=== PATIENT | male | born 1955 | race Caucasian/White ===

== ENCOUNTER → 2017-09-08 15:56 | Outpatient (CLI) | payer OTHER, SELFPAY ==
--- NOTE | 2017-09-08 | DI.MRI.S_ITS ---
PROCEDURE: MR LUMBAR SPINE WO CON INDICATIONS: LOW BACK PAIN RADIATING INTO HIPS AND DOWN LEGS TO FEET TECHNIQUE: Noncontrast sagittal T1 spin echo and T2 fast echo, sagittal STIR, axial T1 and T2 fast spin echo through the lumbar spine. In cases with scoliosis, additional coronal T2 fast spin echo may be performed. COMPARISON: None. FINDINGS: Image quality: Excellent. Alignment and Curvature: There is normal bony alignment. Bone Marrow: Marrow is of normal overall signal. No acute vertebral body compression fractures. Spinal Cord: Conus medullaris terminates at the L1 level. Visualized cord demonstrates normal signal and size. Paraspinous Soft Tissues: No paravertebral masses. L1-L2: Normal appearance. L2-L3: Normal appearance. L3-L4: Normal appearance. L4-L5: Moderately severe degenerative disc height reduction and desiccation there is a posterior broad-based transverse disc bulge at this level. This is slightly greater on the right than the left and extends into the posterolateral recess and neural foramen to a mild degree, combining with bilateral symmetric facet osteoarthritis to result in mild impingement on the course of the right L4 nerve root. Impingement on the course of the left L4 nerve root is not seen. L5-S1: The degenerative disc disease at L5-S1 there is moderate in severity, and there is a moderate degree of bilateral facet osteoarthritis with facet hyperostosis and ligamentum flavum hypertrophy, symmetrically narrowing the neural foramen at this level to a mild degree. Definite nerve root impingement is not identified, however. IMPRESSION: The degenerative disc disease and facet osteoarthritis along the lumbosacral spine there is minimal to the L4-5 level and L5-S1 level where degenerative disc height reduction and desiccation is present. There is foraminal stenosis that is relatively mild noted on the right at L4-5 and symmetrically at L5-S1. Nerve root impingement at these levels if present would be relatively mild. Dictated by: Anton Fair M.D. on 09/09/2017 at 17:17 Approved by: Anton Fair M.D. on 09/09/2017 at 17:21
== END ==
PROVIDERS: Visit Provider Orthopaedic Surgery
DX: M51.36 Other intervertebral disc degeneration, lumbar region (principal); M47.816 Spondylosis without myelopathy or radiculopathy, lumbar region; M51.37 Other intervertebral disc degeneration, lumbosacral region; M99.73 Connective tissue and disc stenosis of intervertebral foramina of lumbar region
CPT/HCPCS: 72148

== ENCOUNTER → 2019-05-25 15:08 | Outpatient (ROUT) | payer OTHER, SELFPAY ==
[2019-05-25 15:59] LABS: Aspartate Aminotransferase 35 IU/L (17-59); BUN Creatinine Ratio 18.6 (6-22); Blood Urea Nitrogen 13 mg/dL (9-20); Calcium 9.8 mg/dL (8.4-10.2); Carbon Dioxide 29 mmol/L (22-32); Chloride 96 mmol/L (98-107); Cholesterol 207 mg/dL (140-199); Estimated Glomerular Filt Rate > 60.0 mL/min (>60); Glucose 160 mg/dL (80-110); HDL Cholesterol 72 mg/dL (40-60); HEMOLYSIS < 15 (0-50); LDL Cholesterol Calculated 113 mg/dL (<100); Potassium 3.8 mmol/L (3.4-5.1); Sodium 137 mmol/L (137-145); Triglycerides 110 mg/dL (35-150)
[2019-05-25 16:07] LABS: Hemoglobin A1C% w Est Avg Glu 7.5 % (4.0-6.0)
[2019-05-25 16:28] LABS: Prostate Specific Antigen Scrn 1.27 ng/mL (0.1-4.0)
== END ==
PROVIDERS: Visit Provider Internal Medicine
DX: Z00.00 Encounter for general adult medical examination without abnormal findings (principal); I10 Essential (primary) hypertension; E78.2 Mixed hyperlipidemia; E11.9 Type 2 diabetes mellitus without complications
CPT/HCPCS: 80048; 80061; 83036; 84450; G0103

== ENCOUNTER → 2020-03-07 15:28 | Outpatient (ROUT) | payer OTHER, SELFPAY ==
[2020-03-07 15:47] LABS: Alanine Aminotransferase 37 IU/L (<50); Albumin 4.3 g/dL (3.5-5.0); Albumin Globulin Ratio 1.4 (1.0-2.8); Alkaline Phosphatase 52 U/L (38-126); Aspartate Aminotransferase 33 IU/L (17-59); BUN Creatinine Ratio 26.7 (6-22); Bilirubin Total 0.6 mg/dL (0.2-1.3); Blood Urea Nitrogen 16 mg/dL (9-20); Calcium 9.7 mg/dL (8.4-10.2); Carbon Dioxide 31 mmol/L (22-32); Chloride 99 mmol/L (98-107); Cholesterol 161 mg/dL (140-199); Estimated Glomerular Filt Rate > 60.0 mL/min (>60); Glucose 153 mg/dL (80-110); HDL Cholesterol 47 mg/dL (40-60); HEMOLYSIS < 15 (0-50); LDL Cholesterol Calculated 86 mg/dL (<100); Potassium 3.9 mmol/L (3.4-5.1); Sodium 136 mmol/L (137-145); Total Protein 7.3 g/dL (6.3-8.2); Triglycerides 142 mg/dL (35-150)
== END ==
PROVIDERS: Visit Provider Internal Medicine
DX: E11.69 Type 2 diabetes mellitus with other specified complication (principal); E78.2 Mixed hyperlipidemia
CPT/HCPCS: 80053; 80061

== ENCOUNTER 2020-05-10 17:28 | Emergency (ER) | payer OTHER, SELFPAY ==
[2020-05-10 17:35] VITALS: BP 158/94; PULSE 81; RESP 18; TEMP 36.9; O2SAT 98; BMI 30.5
--- NOTE | 2020-05-10 17:43 | DI.RAD.S_ITS ---
PROCEDURE: XR HAND RT MIN 3V INDICATIONS: R hand injury TECHNIQUE: 3 views of the hand acquired. COMPARISON: None. FINDINGS: Bones: No acute fractures or dislocations. Carpal bones are normally aligned. No suspicious bony lesions. Chronic ununited ulnar styloid styloid fracture is noted. Mild degenerative changes are noted at the this triscaphe joint, the 1st carpometacarpal and metacarpophalangeal joints and scattered throughout the interphalangeal joints. Soft tissues: No suspicious soft tissue calcifications. IMPRESSION: No acute osseous abnormality. Mild osteoarthrosis. If the symptoms persist with conservative management, consider cross sectional imaging such as CT or MRI for further assessment. Dictated by: Carlton Mccauley M.D. on 05/10/2020 at 18:21 Approved by: Carlton Mccauley M.D. on 05/10/2020 at 18:22
--- NOTE | 2020-05-10 19:18 | ED.UPPEXIN ---
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 Using a Breaker bar to loosen a knot on a motor mount. Using heavy stress with his right hand and wrist. [place] pain afterwards. Ongoing through today. Patient had history of injury to right wrist and hand at 17 years of age. Usually has full active range of motion but now has limited range of motion with swelling over the dorsum of the right wrist. No skin injury. No numbness or tingling. MD complaint: injury to: right and wrist Related Data Home Medications Medication Instructions Recorded Confirmed atorvastatin [Lipitor] 80 mg OR Q DAY #0 01/07/13 lisinopril 20 mg PO Q DAY #0 01/07/13 chlorthalidone #0 04/17/17 metformin [Fortamet] #0 04/17/17 Previous Rx's Medication Instructions Recorded ibuprofen 600 mg PO Q6H PRN #12 tab 05/10/20 Allergies Allergy/AdvReac Type Severity Reaction Status Date / Time No Known Drug Allergies Allergy Verified 05/10/20 17:38 Review of Systems Review of Systems Narrative: GENERAL: Denies chills, fatigue, malaise, fever, sweats. MUSCULOSKELETAL: denies muscle or bony pain SKIN: Denies rash, skin lesions NEUROLOGIC: Denies weakness, headache, numbness, change in speech, confusion ROS Unobtainable: All systems reviewed & are unremarkable except as noted in HPI and below Patient History Social History Smoking Status: Former smoker Smoking Status: Former smoker alcohol intake frequency: 0-2 drinks per day Substance Use Type: does not use Exam Narrative Exam Narrative: GENERAL: patient appears stated age. Well-nourished, well-developed patient, in no distress, not toxic not dyspneic HEAD: Normocephalic. EXTREMITIES: No gross deformities. Examination right upper extremity. Nontender shoulder elbow. Hand were soft and pink with strong radial pulse and light touch intact to thumb and fingertips. Makes strong okay sign. As well as thumbs up. Good resistance opposition to my thumb. Limited range of motion of the wrist due to pain. There is dorsal surface wrist edema mild erythema. Tenderness or overlying the ulna styloid. As well as distal radius. 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 NEURO: AOx4. SKIN: Warm and dry PSYCH: Not anxious, is cooperative Initial Vital Signs Initial Vital Signs: Vital Signs Temperature 98.5 F 05/10/20 17:35 Pulse Rate 81 05/10/20 17:35 Respiratory Rate 18 05/10/20 17:35 Blood Pressure 158/94 H 05/10/20 17:35 Pulse Oximetry 98 05/10/20 17:35 Procedures Orthopedic Splinting/Casting Injury #1: Side: right Upper Extremity Injury Location: wrist Upper Extremity Immobilizer: wrist splint and thumb spica Post splinting neuro exam: intact and no change Post splinting vascular exam: no change Placed by: Provider (central services tech) Course Orders Ordered: Discontinued Medications Ibuprofen (Ibuprofen 400 Mg Tablet) 800 mg PO NOW ONE Stop: 05/10/20 19:19 Last Admin: 05/10/20 19:28 Dose: 800 mg Documented by: GUZMAN Reevaluation(s) Reevaluation #1: Patient tolerated splinting well. Agrees with treatment plan and follow-up. Time: 19:27 Vital Signs Vital signs: Vital Signs - 8 hr 05/10/20 17:35 Temperature 98.5 F Pulse Rate 81 Respiratory Rate 18 Blood Pressure 158/94 H Pulse Oximetry 98 MDM - Extremity Injury (Upper) Differential Diagnosis Differential diagnosis: Likely sprain and strain of wrist and fracture of wrist Imaging Data Extremity x-ray #1: Radiologist's Impression: [address] [id number] ReportSigned Patient: Daron Jolly [facility]#: [id number]: 6Acct:[id number]/Sex: 65 / MDate of Service: 05/10/20Loc: EDAccession Number: [id number] Procedure: XR hand RT min 3V Ordering Provider: Jaron Ro D.O. PROCEDURE: XR HAND RT MIN 3V INDICATIONS: R hand injury TECHNIQUE: 3 views of the hand acquired. COMPARISON: None. FINDINGS: Bones: No acute fractures or dislocations. Carpal bones are normally aligned. No suspicious bony lesions. Chronic ununited ulnar styloid styloid fracture is noted. Mild degenerative changes are noted at the this triscaphe joint, the 1st carpometacarpal and metacarpophalangeal joints and scattered throughout the interphalangeal joints. Soft tissues: No suspicious soft tissue calcifications. IMPRESSION: No acute osseous abnormality. Mild osteoarthrosis. If the symptoms persist with conservative management, consider cross sectional imaging such as CT or MRI for further assessment. Dictated by: Carlton Mccauley M.D. on 05/10/2020 at 18:21 Approved by: Carlton Mccauley M.D. on 05/10/2020 at 18:22 [facility] Narrative Medical decision making narrative: Appropriate for discharge home. Patient is self-employed. Comfortable with treatment plan and follow-up with orthopedics. Short course of anti-inflammatory appropriate. Patient not want narcotics Discharge Plan Departure Patient Disposition: Home Clinical Impression: Sprain and strain of wrist Instructions: DI for Wrist Sprain Activity Restrictions/Additional Instructions: Return to work when cleared by orthopedic/hand surgeon. Call his office in the morning for office recheck within a week. Keep hand and wrist elevated at shoulder level when at rest. May use cool packs to the wrist as needed 20 minutes at time for pain and swelling. Use wrist splint for comfort and immobilization. Return if worse if any questions or concerns. May need CT scan or MRI of the wrist if not improving 7 or 10 days Prescriptions: New ibuprofen 600 mg tablet 600 mg PO Q6H PRN (Reason: fever or pain) Qty: 12 RF: 0 No Action lisinopril 20 MG tablet 20 mg PO Q DAY Qty: 0 RF: 0 atorvastatin [Lipitor] 80 MG tablet 80 mg OR Q DAY Qty: 0 RF: 0 chlorthalidone 25 MG tablet Qty: 0 RF: 0 metformin [Fortamet] 1,000 MG tablet extended release 24hr Qty: 0 RF: 0 Referrals: Ash Pond MD [Primary Care Provider] - Phan Stevens MD [Physician] -
[2020-05-10] MEDS: IBUPROFEN 400 MG TABLET 800 MG PO (19:28)
== END 2020-05-10 19:43 | disposition home or self-care (01) ==
PROVIDERS: Emergency Provider Emergency Medicine; PCP Internal Medicine
DX: S63.501A Unspecified sprain of right wrist, initial encounter (principal); X58.XXXA Exposure to other specified factors, initial encounter
CPT/HCPCS: 73130; 99283

== ENCOUNTER → 2020-09-05 15:12 | Outpatient (ROUT) | payer OTHER, SELFPAY ==
[2020-09-05 15:56] LABS: Aspartate Aminotransferase 40 IU/L (17-59); BUN Creatinine Ratio 21.7 (6-22); Blood Urea Nitrogen 15 mg/dL (9-20); Carbon Dioxide 29 mmol/L (22-32); Chloride 97 mmol/L (98-107); Cholesterol 201 mg/dL (140-199); Estimated Glomerular Filt Rate > 60.0 mL/min (>60); Glucose 154 mg/dL (80-110); HDL Cholesterol 63 mg/dL (40-60); HEMOLYSIS < 15 (0-50); LDL Cholesterol Calculated 102 mg/dL (<100); Potassium 3.8 mmol/L (3.4-5.1); Sodium 135 mmol/L (137-145); Triglycerides 180 mg/dL (35-150)
[2020-09-05 16:16] LABS: Prostate Specific Antigen 0.966 ng/mL (0.10-4.00)
== END ==
PROVIDERS: PCP Internal Medicine; Visit Provider Internal Medicine
DX: I10 Essential (primary) hypertension (principal); E78.2 Mixed hyperlipidemia; Z00.00 Encounter for general adult medical examination without abnormal findings
CPT/HCPCS: 80048; 80061; 84153; 84450

== ENCOUNTER → 2020-09-19 14:51 | Outpatient (CLI) | payer OTHER, SELFPAY ==
--- NOTE | 2020-09-19 | DI.RAD.S_ITS ---
PROCEDURE: XR CHEST 2V INDICATIONS: Costochondritis, acute TECHNIQUE: 2 views of the chest were acquired. COMPARISON: [facility], , CHEST 2 VIEW, 01/07/2013, 7:33. FINDINGS: Surgical changes and devices: None. Lungs and pleura: Lungs are clear. No pleural effusions or pneumothorax. Mediastinum: Mediastinal contours are normal. Heart size is normal. Bones and chest wall: No suspicious bony abnormalities. Soft tissues appear unremarkable. IMPRESSION: No acute cardiopulmonary disease. Dictated by: Iraj Salinas [facility] Interpreted: Peter Matson MD on 09/19/2020 at 16:59 Transcribed by: LATOYA on 09/19/2020 at 17:00 Approved by: Peter Matson M.D. on 09/19/2020 at 17:17
== END ==
PROVIDERS: PCP Internal Medicine; Referring Provider Internal Medicine; Visit Provider Internal Medicine
DX: M94.0 Chondrocostal junction syndrome [Tietze] (principal)
CPT/HCPCS: 71046

== ENCOUNTER → 2021-07-11 09:21 | Outpatient (CLI) | payer MEDICARE, OTHER, SELFPAY ==
[2021-07-11 10:45] LABS: Hemoglobin A1C% w Est Avg Glu 7.2 % (4.0-6.0)
[2021-07-11 10:54] LABS: Creatinine Urine Random 70.8 mg/dL
[2021-07-11 10:58] LABS: Alanine Aminotransferase 38 IU/L (<50); BUN Creatinine Ratio 17.3 (6-22); Blood Urea Nitrogen 13 mg/dL (9-20); Calcium 9.6 mg/dL (8.4-10.2); Carbon Dioxide 31 mmol/L (22-32); Chloride 97 mmol/L (98-107); Cholesterol 199 mg/dL (140-199); Estimated Glomerular Filt Rate > 60.0 mL/min (>60); Glucose 168 mg/dL (80-110); HDL Cholesterol 63 mg/dL (40-60); HEMOLYSIS < 15 (0-50); LDL Cholesterol Calculated 117 mg/dL (<100); Microalbumi Creatinin Ratio Ur 12.7 ug/mg CR (<30); Microalbumin Urine Random 0.9 mg/dL (0-1.6); Potassium 4.1 mmol/L (3.4-5.1); Sodium 136 mmol/L (137-145); Triglycerides 95 mg/dL (35-150)
== END ==
PROVIDERS: PCP Internal Medicine; Referring Provider Internal Medicine; Visit Provider Internal Medicine
DX: E11.69 Type 2 diabetes mellitus with other specified complication (principal); I10 Essential (primary) hypertension; E78.5 Hyperlipidemia, unspecified; E78.2 Mixed hyperlipidemia
CPT/HCPCS: 36415; 80048; 80061; 82043; 82570; 83036; 84460

== ENCOUNTER → 2021-07-22 08:41 | Outpatient (CLI) | payer MEDICARE, OTHER, SELFPAY ==
--- NOTE | 2021-07-22 08:43 | DI.CT.S_ITS ---
PROCEDURE: CT KIDNEY URETER BLADDER (KUB) INDICATIONS: Kidney stone, right sided pain TECHNIQUE: Axial sections were acquired from the lung bases to the pubic symphysis. Coronal and sagittal reformats were performed. For radiation dose reduction, the following was used: automated exposure control, adjustment of mA and/or kV according to patient size. COMPARISON: None. FINDINGS: Image quality: Excellent. Lung bases: Unremarkable. Heart: No significant findings. URINARY: Right Kidney: No stones or hydronephrosis. Nonspecific perinephric stranding. Right Ureter: No hydroureter. Left Kidney: No stones or hydronephrosis. Nonspecific perinephric stranding. Left Ureter: No hydroureter. Bladder: Normal wall thickness. No stones. ABDOMEN: Liver: Unremarkable. Gallbladder: Unremarkable. Biliary ducts: Unremarkable. Pancreas: Unremarkable. Spleen: Unremarkable. Adrenal Glands: Unremarkable. Stomach and Bowel: Stomach, small bowel loops, and colon are unremarkable. Normal appendix. Sigmoid diverticulosis without evidence of diverticulitis. Peritoneum: No abnormal intraperitoneal fluid. No free air. Ventral Wall: No hernia. Abdominal Nodes: No enlarged retroperitoneal or mesenteric lymph nodes. Vessels: Aorta and inferior vena cava are normal in size. Calcified atheromatous change of the aorta. PELVIS: Pelvic Organs: Enlargement the prostate measuring 4.6 cm in transverse dimension. Pelvic Nodes: Unremarkable. Miscellaneous: Trace fat containing right inguinal hernia. Bones: Multifocal degenerative change. Superior T11 endplate change, compatible Schmorl's node. IMPRESSION: 1. Nonspecific perinephric stranding without evidence of obstructive uropathy or nephrolithiasis. 2. Prostatomegaly. 3. Sigmoid diverticulosis. Dictated by: Javier Echavarria M.D. on 07/22/2021 at 9:39 Approved by: Javier Echavarria M.D. on 07/22/2021 at 9:45
== END ==
PROVIDERS: PCP Internal Medicine; Referring Provider Internal Medicine; Visit Provider Internal Medicine
DX: N20.0 Calculus of kidney (principal); N40.0 Benign prostatic hyperplasia without lower urinary tract symptoms; K57.30 Diverticulosis of large intestine without perforation or abscess without bleeding
CPT/HCPCS: 74176

== ENCOUNTER → 2021-10-04 08:49 | Outpatient (CLI) | payer MEDICARE, OTHER, SELFPAY ==
[2021-10-04 10:19] LABS: BUN Creatinine Ratio 17.6 (6-22); Blood Urea Nitrogen 15 mg/dL (9-20); Calcium 9.3 mg/dL (8.4-10.2); Carbon Dioxide 31 mmol/L (22-32); Chloride 98 mmol/L (98-107); Cholesterol 187 mg/dL (140-199); Estimated Glomerular Filt Rate > 60 mL/min (>60); Glucose 210 mg/dL (80-110); HDL Cholesterol 61 mg/dL (40-60); LDL Cholesterol Calculated 69 mg/dL (<100); Potassium 3.9 mmol/L (3.4-5.1); Sodium 137 mmol/L (137-145); Triglycerides 286 mg/dL (35-150)
[2021-10-04 10:21] LABS: HEMOLYSIS < 15 (0-50)
[2021-10-06 15:19] LABS: Hemoglobin A1C% w Est Avg Glu 7.2 % (4.0-6.0)
[2021-10-06 15:44] LABS: Prostate Specific Antigen 0.948 ng/mL (0.10-4.00)
== END ==
PROVIDERS: PCP Internal Medicine; Referring Provider Internal Medicine; Visit Provider Internal Medicine
DX: E11.69 Type 2 diabetes mellitus with other specified complication (principal); N40.1 Benign prostatic hyperplasia with lower urinary tract symptoms; N13.8 Other obstructive and reflux uropathy; E78.5 Hyperlipidemia, unspecified; E78.2 Mixed hyperlipidemia; I10 Essential (primary) hypertension
CPT/HCPCS: 36415; 80048; 80061; 83036; 84153

== ENCOUNTER → 2022-01-07 08:00 | Outpatient (CLI) | payer MEDICARE, OTHER, SELFPAY ==
[2022-01-07 08:53] LABS: Hemoglobin A1C% w Est Avg Glu 7.3 % (4.0-6.0)
== END ==
PROVIDERS: PCP Internal Medicine; Referring Provider Internal Medicine; Visit Provider Internal Medicine
DX: E11.69 Type 2 diabetes mellitus with other specified complication (principal); E78.2 Mixed hyperlipidemia; E78.5 Hyperlipidemia, unspecified; I10 Essential (primary) hypertension
CPT/HCPCS: 36415; 83036

== ENCOUNTER → 2022-04-30 09:09 | Outpatient (CLI) | payer MEDICARE, OTHER, SELFPAY ==
[2022-04-30 09:33] LABS: Hematocrit 42.4 % (41-53); Hemoglobin 14.2 g/dL (13.5-17.5); Mean Corpuscular HGB Conc 33.4 % (30-36); Mean Corpuscular Hemoglobin 32.3 PG (26-34); Mean Corpuscular Volume 96.5 fL (80-100); Platelet Count 189 X10^3/uL (150-400); Red Cell Distribution Width 12.9 % (11.6-14.8); White Blood Cell Count 5.5 X10^3/uL (4.5-11.0)
[2022-04-30 09:44] LABS: Hemoglobin A1C% w Est Avg Glu 7.5 % (4.0-6.0)
[2022-04-30 09:54] LABS: Alanine Aminotransferase 47 IU/L (<50); Albumin 4.5 g/dL (3.5-5.0); Albumin Globulin Ratio 1.4 (1.0-2.8); Alkaline Phosphatase 50 U/L (38-126); Aspartate Aminotransferase 35 IU/L (17-59); BUN Creatinine Ratio 22.9 (6-22); Bilirubin Total 0.7 mg/dL (0.2-1.3); Blood Urea Nitrogen 16 mg/dL (9-20); Calcium 9.6 mg/dL (8.4-10.2); Carbon Dioxide 32 mmol/L (22-32); Chloride 95 mmol/L (98-107); Cholesterol 153 mg/dL (140-199); Estimated Glomerular Filt Rate > 60 mL/min (>60); Globulin 3.3 g/dL (1.7-4.1); Glucose 139 mg/dL (80-110); HDL Cholesterol 57 mg/dL (40-60); HEMOLYSIS < 15 (0-50); LDL Cholesterol Calculated 78 mg/dL (<100); Sodium 137 mmol/L (137-145); Total Protein 7.8 g/dL (6.3-8.2); Triglycerides 89 mg/dL (35-150)
[2022-04-30 10:24] LABS: TSH w/ Reflex to FT4 1.41 uIU/mL (0.47-4.68)
[2022-04-30 12:09] LABS: Creatinine Urine Random 69.5 mg/dL
[2022-04-30 12:11] LABS: Microalbumi Creatinin Ratio Ur 8.6 ug/mg CR (<30); Microalbumin Urine Random 0.6 mg/dL (0-1.6)
== END ==
PROVIDERS: PCP Internal Medicine; Referring Provider Internal Medicine; Visit Provider Internal Medicine
DX: E11.69 Type 2 diabetes mellitus with other specified complication (principal); E78.2 Mixed hyperlipidemia; E78.5 Hyperlipidemia, unspecified; I10 Essential (primary) hypertension
CPT/HCPCS: 36415; 80053; 80061; 82043; 82570; 83036; 84443; 85027

== ENCOUNTER → 2022-08-01 09:07 | Outpatient (CLI) | payer MEDICARE, OTHER, SELFPAY ==
[2022-08-01 09:57] LABS: BUN Creatinine Ratio 26.2 (6-22); Blood Urea Nitrogen 16 mg/dL (9-20); Calcium 9.2 mg/dL (8.4-10.2); Carbon Dioxide 30 mmol/L (22-32); Chloride 99 mmol/L (98-107); Estimated Glomerular Filt Rate > 60 mL/min (>60); Glucose 145 mg/dL (80-110); HEMOLYSIS < 15 (0-50); Potassium 3.7 mmol/L (3.4-5.1); Sodium 137 mmol/L (137-145)
[2022-08-02 06:08] LABS: Labcorp Hemoglobin (Hb) A1c 7.6 % (4.8-5.6)
== END ==
PROVIDERS: PCP Internal Medicine; Referring Provider Internal Medicine; Visit Provider Internal Medicine
DX: E78.5 Hyperlipidemia, unspecified (principal); I10 Essential (primary) hypertension; E11.69 Type 2 diabetes mellitus with other specified complication
CPT/HCPCS: 36415; 80048; 83036

== ENCOUNTER → 2023-02-04 09:05 | Outpatient (CLI) | payer MEDICARE, OTHER, SELFPAY ==
[2023-02-04 11:44] LABS: Hemoglobin A1C% w Est Avg Glu 7.4 % (4.0-6.0)
[2023-02-04 12:07] LABS: Aspartate Aminotransferase 34 IU/L (17-59); BUN Creatinine Ratio 23.2 (6-22); Blood Urea Nitrogen 16 mg/dL (9-20); Calcium 9.9 mg/dL (8.4-10.2); Carbon Dioxide 33 mmol/L (22-32); Chloride 95 mmol/L (98-107); Cholesterol 153 mg/dL (140-199); Estimated Glomerular Filt Rate > 60 mL/min (>60); Glucose 138 mg/dL (80-110); HDL Cholesterol 59 mg/dL (40-60); HEMOLYSIS < 15 (0-50); LDL Cholesterol Calculated 78 mg/dL (<100); Potassium 3.9 mmol/L (3.4-5.1); Sodium 138 mmol/L (137-145); Triglycerides 79 mg/dL (35-150)
== END ==
PROVIDERS: PCP Internal Medicine; Referring Provider Internal Medicine; Visit Provider Internal Medicine
DX: E11.69 Type 2 diabetes mellitus with other specified complication (principal); E78.5 Hyperlipidemia, unspecified; I10 Essential (primary) hypertension; E78.2 Mixed hyperlipidemia
CPT/HCPCS: 36415; 80048; 80061; 83036; 84450

== ENCOUNTER → 2023-08-05 09:09 | Outpatient (CLI) | payer MEDICARE, OTHER, SELFPAY ==
[2023-08-05 10:48] LABS: Hemoglobin A1C% w Est Avg Glu 7.8 % (4.0-6.0)
[2023-08-05 11:08] LABS: BUN Creatinine Ratio 24.6 (6-22); Blood Urea Nitrogen 17 mg/dL (9-20); Calcium 9.7 mg/dL (8.4-10.2); Carbon Dioxide 31 mmol/L (22-32); Chloride 101 mmol/L (98-107); Estimated Glomerular Filt Rate > 60 mL/min (>60); Glucose 131 mg/dL (80-110); HEMOLYSIS < 15 (0-50); Potassium 4.1 mmol/L (3.4-5.1); Sodium 138 mmol/L (137-145)
[2023-08-05 11:14] LABS: Creatinine Urine Random 65.4 mg/dL
[2023-08-05 11:18] LABS: Microalbumi Creatinin Ratio Ur 27.5 ug/mg CR (<30); Microalbumin Urine Random 1.8 mg/dL (0-1.6)
[2023-08-05 11:27] LABS: Prostate Specific Antigen 1.17 ng/mL (0.10-4.00)
== END ==
PROVIDERS: PCP Internal Medicine; Referring Provider Internal Medicine; Visit Provider Internal Medicine
DX: N40.1 Benign prostatic hyperplasia with lower urinary tract symptoms (principal); E11.69 Type 2 diabetes mellitus with other specified complication; N13.8 Other obstructive and reflux uropathy; E78.5 Hyperlipidemia, unspecified
CPT/HCPCS: 36415; 80048; 82043; 82570; 83036; 84153

== ENCOUNTER → 2024-02-10 08:37 | Outpatient (CLI) | payer MEDICARE, OTHER, SELFPAY ==
[2024-02-10 10:05] LABS: Hemoglobin A1C% w Est Avg Glu 7.2 % (4.0-6.0)
[2024-02-10 10:19] LABS: Aspartate Aminotransferase 34 IU/L (17-59); BUN Creatinine Ratio 18.6 (6-22); Blood Urea Nitrogen 13 mg/dL (9-20); Calcium 9.6 mg/dL (8.4-10.2); Carbon Dioxide 30 mmol/L (22-32); Chloride 96 mmol/L (98-107); Cholesterol 175 mg/dL (140-199); Estimated Glomerular Filt Rate > 60 mL/min (>60); Glucose 146 mg/dL (80-110); HDL Cholesterol 67 mg/dL (40-60); HEMOLYSIS < 15 (0-50); LDL Cholesterol Calculated 84 mg/dL (<100); Potassium 3.7 mmol/L (3.4-5.1); Sodium 136 mmol/L (137-145); Triglycerides 122 mg/dL (35-150)
== END ==
PROVIDERS: PCP Internal Medicine; Referring Provider Internal Medicine; Visit Provider Internal Medicine
DX: Z00.00 Encounter for general adult medical examination without abnormal findings (principal); E11.69 Type 2 diabetes mellitus with other specified complication; E78.2 Mixed hyperlipidemia; I10 Essential (primary) hypertension; E78.5 Hyperlipidemia, unspecified; M54.50 Low back pain, unspecified; G89.29 Other chronic pain; G57.12 Meralgia paresthetica, left lower limb; N40.1 Benign prostatic hyperplasia with lower urinary tract symptoms; N13.9 Obstructive and reflux uropathy, unspecified; Z68.30 Body mass index [BMI] 30.0-30.9, adult; L30.9 Dermatitis, unspecified
CPT/HCPCS: 36415; 80048; 80061; 83036; 84450

== ENCOUNTER → 2024-08-10 07:06 | Outpatient (CLI) | payer MEDICARE, OTHER, SELFPAY ==
[2024-08-10 08:08] LABS: Hemoglobin A1C% w Est Avg Glu 6.1 % (4.0-6.0)
[2024-08-10 08:30] LABS: BUN Creatinine Ratio 17.1 (6-22); Blood Urea Nitrogen 13 mg/dL (9-20); Calcium 9.8 mg/dL (8.4-10.2); Carbon Dioxide 31 mmol/L (22-32); Chloride 96 mmol/L (98-107); Estimated Glomerular Filt Rate > 60 mL/min (>60); Glucose 127 mg/dL (70-99); HEMOLYSIS < 15 (0-50); Potassium 3.6 mmol/L (3.4-5.1); Sodium 135 mmol/L (137-145)
[2024-08-10 08:52] LABS: Prostate Specific Antigen 1.65 ng/mL (0.10-4.00)
== END ==
PROVIDERS: PCP Internal Medicine; Referring Provider Internal Medicine; Visit Provider Internal Medicine
DX: E11.69 Type 2 diabetes mellitus with other specified complication (principal); N40.1 Benign prostatic hyperplasia with lower urinary tract symptoms; N13.8 Other obstructive and reflux uropathy; E78.5 Hyperlipidemia, unspecified
CPT/HCPCS: 36415; 80048; 83036; 84153

== ENCOUNTER → 2025-01-31 12:00 | Outpatient (CLI) | payer MEDICARE, OTHER, SELFPAY ==
[2025-01-31 13:16] LABS: Add Manual Diff / Slide Review NO; Hematocrit 40.7 % (41-53); Hemoglobin 13.9 g/dL (13.5-17.5); Lymphocytes Absolute Auto 2200 /uL (1100-4500); Mean Corpuscular HGB Conc 34.2 % (30-36); Mean Corpuscular Hemoglobin 33.0 PG (26-34); Mean Corpuscular Volume 96.4 fL (80-100); Platelet Count 214 X10^3/uL (150-400)
[2025-01-31 13:23] LABS: Hemoglobin A1C% w Est Avg Glu 6.7 % (4.0-6.0)
[2025-01-31 13:49] LABS: Blood Urea Nitrogen 13 mg/dL (9-20); Calcium 9.9 mg/dL (8.4-10.2); Carbon Dioxide 29 mmol/L (22-32); Chloride 98 mmol/L (98-107); Cholesterol 118 mg/dL (140-199); Estimated Glomerular Filt Rate > 60 mL/min (>60); Glucose 99 mg/dL (70-99); HDL Cholesterol 54 mg/dL (40-60); HEMOLYSIS < 15 (0-50); Potassium 3.5 mmol/L (3.4-5.1); Sodium 136 mmol/L (137-145); Triglycerides 139 mg/dL (35-150)
[2025-01-31 14:28] LABS: Microalbumi Creatinin Ratio Ur 13.0 ug/mg CR (<30)
== END ==
PROVIDERS: PCP Internal Medicine; Referring Provider Internal Medicine; Visit Provider Internal Medicine
DX: E11.69 Type 2 diabetes mellitus with other specified complication (principal); E78.5 Hyperlipidemia, unspecified; E78.2 Mixed hyperlipidemia; L03.90 Cellulitis, unspecified
CPT/HCPCS: 36415; 80048; 80061; 82043; 82570; 83036; 84450; 85025; 85651; 86140